=== PATIENT | female | born 1955 | race Caucasian/White ===

== ENCOUNTER 2024-12-14 15:01 | Outpatient (CLI) | payer MEDICARE, OTHER | END 2024-12-14 15:02 | disposition home or self-care (01) | LOC: CSHMAMMO 15:01 | PROVIDERS: ATTEND Specialist | DX: Z12.31 Encounter for screening mammogram for malignant neoplasm of breast (principal); Z85.3 Personal history of malignant neoplasm of breast; Z85.89 Personal history of malignant neoplasm of other organs and systems | CPT/HCPCS: 77063; 77067 ==